=== PATIENT | male | born 1975 | race American Indian/Alaskan Native ===

== ENCOUNTER 2017-06-16 04:52 | Emergency (ER) | payer SELFPAY ==
[2017-06-16 05:06] VITALS: BP 121/69
[2017-06-16 06:14] LABS: Basophils % (Auto) 0.5 % (0.0-1.8); Eosinophils % (Auto) 0.8 % (0.0-4.3); Hematocrit 44.9 % (35.5-45.6); Mean Corpuscular HGB Conc 33 % (32-34); Mean Corpuscular Hemoglobin 31 pg (28-32); Mean Corpuscular Volume 93 fl (84-94); Platelet Count 227 K/mm3 (140-440); Red Blood Count 4.83 M/mm3 (3.65-5.03); White Blood Count 12.5 K/mm3 (4.5-11.0)
[2017-06-16 06:25] LABS: Anion Gap 21 mmol/L; BUN/Creatinine Ratio 10; Blood Urea Nitrogen 13 mg/dL (9-20); Calcium 8.8 mg/dL (8.4-10.2); Carbon Dioxide 24 mmol/L (22-30); Chloride 94.4 mmol/L (98-107); Glucose 256 mg/dL (75-100); Potassium 3.7 mmol/L (3.6-5.0); Sodium 136 mmol/L (137-145)
== END 2017-06-16 05:15 | disposition left against medical advice (07) ==
LOC: ED 04:52
DX: R07.89 Other chest pain (principal); Z53.21 Procedure and treatment not carried out due to patient leaving prior to being seen by health care provider
CPT/HCPCS: 36415; 80048; 84484; 85025; 93005; 93010; G0480; 80320